=== PATIENT | female | born 1950 | race Two or more races ===

== ENCOUNTER → 2019-08-21 | Outpatient (REF) | payer MEDICARE, OTHER ==
[~2019-08-21] MED LIST: ACTOS30 PO; ACTOS45 PO; AMLO10TA; ASPI325T; CELE100C; DIOV320T; DIOVAN PO; DIOVAN160 PO; DIOVANHCT PO; GLEEVEC; GLUC1TOUCH TOPICAL; GLUCOT PO; GLUCULTRA TOP; HCTZ25 PO; HYDROD25 PO; LASI20TA; LOVE1INJ; NORVASC5 PO; OYST500T; REPA2TAB5; ROSI4TA; SIMV5TAB2; TEMOVATEOI TOPICAL; THERGRAN; TYLENOL #3; VICO5TAB; VIOXX25 PO; VIOXX50 PO; ZOCOR20 PO
[2019-08-21 12:15] LABS: BLOOD UREA NITROGEN 19 MG/DL (7-18); CARBON DIOXIDE LEVEL 28 MEQ/L (21-32); CHLORIDE LEVEL 109 MEQ/L (98-107); CHOLESTEROL LEVEL 141 MG/DL (<200); CHOLESTEROL RISK RATIO 3.615 (<5); CREATININE FOR GFR 0.59 MG/DL (0.55-1.30); GLOMERULAR FILTRATION RATE > 60.0 (>45); GLUCOSE, FASTING 179 MG/DL (70-100); HDL CHOLESTEROL 39 MG/DL (>40); LDL CHOLESTEROL 65 MG/DL (<100); NON-HDL-C 102 MG/DL; POTASSIUM SERUM 3.8 MEQ/L (3.5-5.1); SODIUM LEVEL 142 MEQ/L (136-145); TRIGLYCERIDES LEVEL 187 MG/DL (<150)
[2019-08-21 12:52] LABS: CREATININE, URINE 48.3 MG/DL; MAU/CREAT RATIO 977.2 MCG/MG (0.0-30.0)
[2019-08-21 13:43] LABS: HEMOGLOBIN A1c 7.9 %
== END ==
LOC: M SFHCCLAY 08:19
PROVIDERS: ATTEND Family Medicine
DX: E11.9 Type 2 diabetes mellitus without complications (principal); E78.5 Hyperlipidemia, unspecified; I11.9 Hypertensive heart disease without heart failure

== ENCOUNTER → 2019-09-09 | Outpatient (REF) | payer MEDICARE, OTHER ==
[2019-09-09 11:27] LABS: BLOOD UREA NITROGEN 19 MG/DL (7-18); CARBON DIOXIDE LEVEL 30 MEQ/L (21-32); CHLORIDE LEVEL 108 MEQ/L (98-107); CREATININE FOR GFR 0.67 MG/DL (0.55-1.30); GLOMERULAR FILTRATION RATE > 60.0 (>45); GLUCOSE, FASTING 132 MG/DL (70-100); POTASSIUM SERUM 3.6 MEQ/L (3.5-5.1); SODIUM LEVEL 145 MEQ/L (136-145)
== END ==
LOC: M SFHCCLAY 08:00
PROVIDERS: ATTEND Family Medicine
DX: I11.9 Hypertensive heart disease without heart failure (principal)

== ENCOUNTER → 2019-09-22 | Outpatient (REF) | payer MEDICARE, OTHER ==
[2019-09-22 11:49] LABS: BLOOD UREA NITROGEN 17 MG/DL (7-18); CALCIUM LEVEL 9.3 MG/DL (8.8-10.2); CARBON DIOXIDE LEVEL 32 MEQ/L (21-32); CHLORIDE LEVEL 108 MEQ/L (98-107); CREATININE FOR GFR 0.73 MG/DL (0.55-1.30); GLOMERULAR FILTRATION RATE > 60.0 (>45); GLUCOSE, FASTING 108 MG/DL (70-100); POTASSIUM SERUM 3.7 MEQ/L (3.5-5.1); SODIUM LEVEL 143 MEQ/L (136-145)
== END ==
LOC: M SFHCCLAY 08:05
PROVIDERS: ATTEND Family Medicine
DX: I11.9 Hypertensive heart disease without heart failure (principal)
CPT/HCPCS: 80048; G0463

== ENCOUNTER → 2019-12-07 | Outpatient (REF) | payer MEDICARE, OTHER ==
[2019-12-07 13:14] LABS: BLOOD UREA NITROGEN 16 MG/DL (7-18); CALCIUM LEVEL 8.5 MG/DL (8.8-10.2); CARBON DIOXIDE LEVEL 28 MEQ/L (21-32); CHLORIDE LEVEL 112 MEQ/L (98-107); CREATININE FOR GFR 0.68 MG/DL (0.55-1.30); GLOMERULAR FILTRATION RATE > 60.0 (>45); GLUCOSE, FASTING 160 MG/DL (70-100); POTASSIUM SERUM 3.6 MEQ/L (3.5-5.1); SODIUM LEVEL 146 MEQ/L (136-145)
[2019-12-07 14:00] LABS: HEMOGLOBIN A1c 7.9 %
== END ==
LOC: M LABDRAWC 11:24
PROVIDERS: ATTEND Family Medicine
DX: I11.9 Hypertensive heart disease without heart failure (principal); R60.0 Localized edema; E11.29 Type 2 diabetes mellitus with other diabetic kidney complication

== ENCOUNTER → 2020-02-04 | Outpatient (CLI) | payer MEDICARE, OTHER ==
--- NOTE | 2020-02-04 15:54 | REP ---
INDICATION: R92.8 ABN MAMMO OF LT BREAST,N63.20 LT BREAST MASS. COMPARISON: [facility] 07/[facility]/2018, 01/01/2020, and 01/05/2020. TECHNIQUE: Real-time sonographic evaluation of left breast performed. According to the patient's history an abnormality was seen on the recent mammogram in December 2019 between 8 and 10 o'clock.. FINDINGS: No cystic or solid nodule is seen in the left breast between 8 and 10 o'clock. At the 2 o'clock position 12 cm from the nipple there is a simple cyst measuring 5 x 7 x 5 mm. At 3 o'clock approximately 8 cm from the nipple there is an irregular nodular area of shadowing which is taller than wide and measures 6 x 11 x 13 mm. IMPRESSION: BIRADS/ACR category 4 suspicious. At the 3 o'clock position of the left breast approximately 8 cm from the nipple there is an irregular shadowing nodule which is taller than wide and measures 6 x 11 x 13 mm. Recommend ultrasound-guided biopsy. No sonographic abnormality between 8 and 10 o'clock left breast. Simple cyst left breast 2 o'clock 7 mm. RECOMMENDATION: Ultrasound-guided biopsy of the irregular nodule at 3 o'clock left breast is recommended. <Electronically signed by Sony Kiser > 02/04/20 [id number]
== END ==
LOC: M WHC 09:23
PROVIDERS: ATTEND Surgery
DX: N63.25 Unspecified lump in the left breast, overlapping quadrants (principal)

== ENCOUNTER → 2020-02-23 | Outpatient (CLI) | payer MEDICARE, OTHER ==
--- NOTE | 2020-02-23 11:21 | REP ---
INDICATION: R92.8 ABN MAMMO LT MEDIAL LESION,LT 3:00 LESION,POST BX. Marker clip placement views. Patient is status post stereotactic needle biopsy for a medial target in the left breast and ultrasound-guided needle biopsy with marker clip placement for a lateral target seen by sonography. COMPARISON: [facility] 01/01/[facility]. TECHNIQUE: Craniocaudal and mediolateral views of the left breast are obtained. FINDINGS: Craniocaudad and mediolateral views of the left breast demonstrate a needle biopsy marker clip in position at the site ofa the somewhat spiculated densityaa identified in the medial aspect of the left breast on 01/01/2020 prior mammography. A 2nd needle biopsy marker clip is noted in the superolateral quadrant of the left breast from ultrasound-guided needle biopsy procedure. This area corresponds to a area of mammographically visible soft tissue density on the 01/01/2020 study. IMPRESSION: Two needle biopsy marker clips are seen in the left breast, status post stereotactic and ultrasound-guided needle biopsy procedures 4 separate targets. Both clips appear in good position. <Electronically signed by Yonas Martinez > 02/23/20 [id number]
[2020-02-23 13:16] VITALS: BP 138/78
--- NOTE | 2020-02-23 16:06 | REP ---
INDICATION: R92.8 ABN MAMMO LT MEDIAL LESION. COMPARISON: None. TECHNIQUE: This procedure is performed by VALENTE Barriga, under the direct supervision of Dr. Martinez. The risks and benefits of the procedure were explained to the patient and informed consent was obtained both verbally and written. Directly prior to the start of the procedure, a formal timeout was done in the procedure room. The cranial caudal approach was utilized. The left breast mass was localized using mammographic guidance. The skin was prepped and draped in a sterile fashion. Six ml of buffered lidocaine was used as a local anesthetic. A 10 gauge suction assisted mammotome needle was inserted and 6 core biopsy specimens were obtained. A marker clip was placed at the biopsy site. FINDINGS: The patient tolerated the procedure well and there were no immediate complications. After the appropriate amount of monitored convalescence the patient was discharged from the department IMPRESSION: Left breast stereotactic biopsy with micro clip placement. <Electronically signed by Radha Griffin > 02/23/20 [id number] <Electronically signed by Yonas Martinez > 02/23/20 [id number]
--- NOTE | 2020-02-23 19:19 | REP ---
INDICATION: R92.8 ABN US LT 3:00 LESION. COMPARISON: Comparison ultrasound dated 02/04/2020 demonstrates an irregular nodular area of shadowing which is taller than wide and measuring 6 x 11 x 13 mm at the 3 o'clock position approximately 8 cm from the nipple. TECHNIQUE: The procedure was performed by VALENTE Barriga, under the direct supervision of Dr. Martinez. The risks and benefits of the procedure were explained to the patient and an informed consent was obtained both verbally and written. Directly prior to the start of the procedure a formal time-out was completed in the procedure room. FINDINGS: Using ultrasound guidance the left breast mass at the 3 o'clock position was localized. The skin was prepped and draped in a sterile fashion. Six mL of buffered lidocaine was used as a local anesthetic. Using ultrasound guidance a 14 gauge Bard Marquee coaxial needle biopsy system was inserted and advanced into the left 3 o'clock breast mass. Six core biopsy specimens were obtained and sent to pathology for further analysis. A marker clip was placed at the biopsy site. The patient tolerated the procedure well and there were no immediate complications. After the appropriate amount of monitored convalescence the patient was discharged from the department. IMPRESSION: 1. Ultrasound-guided left breast biopsy at the 3 o'clock position. <Electronically signed by Radha Griffin > 02/23/201658 <Electronically signed by Yonas Martinez > 02/23/20 [id number]
== END ==
LOC: M WHCPRO 08:22
PROVIDERS: ATTEND Surgery
DX: N60.12 Diffuse cystic mastopathy of left breast (principal)

== ENCOUNTER → 2020-07-15 | Outpatient (REF) | payer MEDICARE, OTHER ==
[2020-07-15 16:50] LABS: HEMOGLOBIN A1c 6.7 %
[2020-07-15 17:00] LABS: BLOOD UREA NITROGEN 12 MG/DL (7-18); CALCIUM LEVEL 9.1 MG/DL (8.8-10.2); CARBON DIOXIDE LEVEL 29 MEQ/L (21-32); CHLORIDE LEVEL 105 MEQ/L (98-107); CREATININE FOR GFR 0.64 MG/DL (0.55-1.30); GLOMERULAR FILTRATION RATE > 60.0 (>45); GLUCOSE, FASTING 90 MG/DL (70-100); POTASSIUM SERUM 3.4 MEQ/L (3.5-5.1); SODIUM LEVEL 141 MEQ/L (136-145)
== END ==
LOC: M SFHCCLAY 10:00
PROVIDERS: ATTEND Family Medicine
DX: E11.29 Type 2 diabetes mellitus with other diabetic kidney complication (principal); I11.9 Hypertensive heart disease without heart failure

== ENCOUNTER → 2020-09-02 | Outpatient (CLI) | payer MEDICARE, OTHER ==
--- NOTE | 2020-09-15 08:21 | REP ---
INDICATION: R92.8 ABN L MAMMO/ABN U/S/6 MO F/U; L BREAST U/S AT BX SITE. COMPARISON: Comparison is made with prior mammography from February 23, 2020 and January 01, 2020. On February 23, 2020 the patient underwent stereotactic needle biopsy and ultrasound-guided needle biopsy in the left breast with marker clip placement at both sites. Comparison left breast sonography February 04, 2020 and February 23, 2020. TECHNIQUE: Craniocaudal and mediolateral oblique views are augmented by a true mL view and 3D tomography. The patient was recalled at my request for targeted repeat left breast ultrasound to reassess the 2 previous biopsy sites by ultrasound as well. Mammography images are obtained on September 02, 2020 and sonography images are obtained on September 06, 2020. This mammogram was interpreted with the aid of an FDA-approved computer-aided detection system. FINDINGS: There are 2 needle biopsy marker clips again noted in the left breast unchanged from comparison study 01/01/2020. These are HydroMARK clips and there is a small soft tissue density surrounding each of the wire components as expected for this type of marker clip. Scattered fibroglandular elements are seen. No new mass is seen. No area of microcalcification or spiculation is appreciated. No worrisome skin changes seen. No suspicious mammographic abnormality. The Volpara volumetric breast density pattern is b. Targeted ultrasound: Right breast scanning is performed targeting the 2 previous biopsy sites. At 3 o'clock position a HydroMARK clip is seen adjacent to a hypoechoic area 9 cm from nipple. There is fluid surrounding the HydroMARK clip. The hypoechoic area measures 1.1 x 1.1 x 1.5 cm. It is unchanged in appearance or size from the February 04, 2020 study. At the stereotactic guided biopsy site at 10 o'clock position, 4 cm from nipple, only the HydroMARK clip and a tiny amount of associated fluid is visible. No suspicious abnormality is seen at this location. IMPRESSION: BIRADS/ACR category 2 benign left breast mammographic and sonographic findings. This patient's Tyrer-Cuzick lifetime breast cancer risk assessment score is 4.1%. RECOMMENDATION: Repeat screening mammography recommended 1 year (for women over 40). The patient letter being requested is M2. <Electronically signed by Yonas Martinez > 09/06/20 [id number]
== END ==
LOC: M WHC 07:53
PROVIDERS: ATTEND Surgery
DX: R92.8 Other abnormal and inconclusive findings on diagnostic imaging of breast (principal)
CPT/HCPCS: 76642; 77065; G0279

== ENCOUNTER → 2020-09-06 | Outpatient (CLI) | payer MEDICARE, OTHER ==
--- NOTE | 2020-09-07 09:04 | DEXAMM ---
INDICATION: Z78.0 MENOPAUSE. COMPARISON: No available priors.. TECHNIQUE: Bone density was measured using dual-energy x-ray absorptionmetry (DEXA). FINDINGS: AP SPINE L1-L4 BMD 1.225 g/cm2 Young Adult T-Score 0.2 Age Matched Z-Score 1.9. LT FEMUR, TOTAL BMD 0.984 g/cm2 Young Adult T-Score -0.2 Age Matched Z-Score 1.2. LT NECK BMD 0.902 g/cm2 Young Adult T-Score -1.0 Age Matched Z-Score 0.7. RT FEMUR, TOTAL BMD 1.044 g/cm2 Young Adult T-Score 0.3 Age Matched Z-Score 1.7. RT NECK BMD 0.970 g/cm2 Young Adult T-Score -0.5 Age Matched Z-Score 1.2. IMPRESSION: There is normal bone density of the spine. There is low bone density of the left hip. There is normal bone density of the right hip. FOLLOW-UP: Recommendation for the next bone density exam: 2 years. <Electronically signed by Yonas Martinez > 09/07/20 [id number]
== END ==
LOC: M WHC 13:41
PROVIDERS: ATTEND Family Medicine
DX: Z78.0 Asymptomatic menopausal state (principal)

== ENCOUNTER → 2020-09-06 | Outpatient (CLI) | payer MEDICARE, OTHER | LOC: M WHC 13:49 | PROVIDERS: ATTEND Surgery | DX: Z78.0 Asymptomatic menopausal state (principal); N63.25 Unspecified lump in the left breast, overlapping quadrants ==

== ENCOUNTER → 2021-08-11 | Outpatient (CLI) | payer MEDICARE, OTHER | LOC: M WUC 15:55 | PROVIDERS: ATTEND Student in an Organized Health Care Education/Training Program | DX: R93.6 Abnormal findings on diagnostic imaging of limbs (principal); M25.531 Pain in right wrist ==

== ENCOUNTER → 2022-01-02 | Outpatient (CLI) | payer MEDICARE, OTHER | LOC: M CLY 11:40 | PROVIDERS: ATTEND Nurse Practitioner Family | DX: M25.511 Pain in right shoulder (principal); M25.811 Other specified joint disorders, right shoulder ==

== ENCOUNTER → 2022-01-31 | Outpatient (CLI) | payer MEDICARE, OTHER | LOC: M SOG 10:06 | PROVIDERS: ATTEND Orthopaedic Surgery | DX: M25.511 Pain in right shoulder (principal) ==

== ENCOUNTER → 2022-02-16 | Outpatient (CLI) | payer MEDICARE, OTHER | LOC: M RAD 12:24 | PROVIDERS: ATTEND Orthopaedic Surgery | DX: M25.511 Pain in right shoulder (principal); M19.011 Primary osteoarthritis, right shoulder ==

== ENCOUNTER → 2022-06-22 | Outpatient (REF) | payer MEDICARE, OTHER ==
[2022-06-22 12:21] LABS: FREE T4 1.26 NG/DL (0.89-1.76); THYROID STIMULATING HORMONE 1.059 uIU/ML (0.55-4.78)
== END ==
LOC: M SFHCCLAY 08:14
PROVIDERS: ATTEND Nurse Practitioner Family
DX: E04.1 Nontoxic single thyroid nodule (principal)

== ENCOUNTER → 2022-12-21 | Outpatient (REF) | payer MEDICARE, OTHER ==
[2022-12-21 12:43] LABS: ALBUMIN 3.6 G/DL (3.2-5.2); ALKALINE PHOSPHATASE 60 U/L (46-116); ALT/SGPT 28 U/L (7.0-40); AST/SGOT 17 U/L (<34); BILIRUBIN,TOTAL 0.4 MG/DL (0.3-1.2); BLOOD UREA NITROGEN 8 MG/DL (9-23); CALCIUM LEVEL 8.9 MG/DL (8.3-10.6); CARBON DIOXIDE LEVEL 26 MMOL/L (20-31); CHLORIDE LEVEL 108 MMOL/L (98-107); CHOLESTEROL LEVEL 122 MG/DL (<200); CHOLESTEROL RISK RATIO 2.83 (<5); GLOMERULAR FILTRATION RATE > 60.0 (>39); GLUCOSE, FASTING 80 MG/DL (74-106); HDL CHOLESTEROL 43.1 MG/DL (>40); LDL CHOLESTEROL 50.9 MG/DL (<100); NON-HDL-C 78.9 MG/DL; POTASSIUM SERUM 3.7 MMOL/L (3.5-5.1); SODIUM LEVEL 144 MMOL/L (136-145); TOTAL PROTEIN 6.3 G/DL (5.7-8.2); TRIGLYCERIDES LEVEL 140 MG/DL (<150)
[2022-12-21 12:44] LABS: FREE T4 1.13 NG/DL (0.89-1.76); THYROID STIMULATING HORMONE 0.518 uIU/ML (0.55-4.78)
[2022-12-21 12:46] LABS: BASO # 0.1 10^3/uL (0.0-0.2); BASO % 0.7 % (0.0-1.0); EOS # 0.2 10^3/uL (0.0-0.5); EOS % 2.6 % (0.0-3.0); HEMATOCRIT 42.1 % (36.0-47.0); LYMPH # 2.6 10^3/uL (1.5-5.0); LYMPH % 35.9 % (24.0-44.0); MEAN CORPUSCULAR HEMOGLOBIN 30.8 pg (27.0-33.0); MEAN CORPUSCULAR HGB CONC 33.3 g/dl (32.0-36.5); MEAN CORPUSCULAR VOLUME 92.7 fl (80.0-96.0); MONO # 0.5 10^3/uL (0.0-0.8); MONO % 7.3 % (2.0-8.0); NEUTROPHILS # 3.9 10^3/uL (1.5-8.5); NEUTROPHILS % 53.2 % (36.0-66.0); PLATELET COUNT, AUTOMATED 283 10^3/uL (150-450); RED BLOOD COUNT 4.54 10^6/uL (4.00-5.40); WHITE BLOOD COUNT 7.2 10^3/uL (4.0-10.0)
[2022-12-21 12:57] LABS: HEMOGLOBIN A1c 7.5 % (4.0-6.0)
== END ==
LOC: M SFHCCLAY 08:17
PROVIDERS: ATTEND Nurse Practitioner Family
DX: E11.29 Type 2 diabetes mellitus with other diabetic kidney complication (principal); E78.5 Hyperlipidemia, unspecified; C92.11 Chronic myeloid leukemia, BCR/ABL-positive, in remission; I10 Essential (primary) hypertension; E04.1 Nontoxic single thyroid nodule

== ENCOUNTER → 2023-01-04 | Outpatient (CLI) | payer MEDICARE, OTHER | LOC: M RAD 10:25 | PROVIDERS: ATTEND Nurse Practitioner Family | DX: E04.1 Nontoxic single thyroid nodule (principal) ==

== ENCOUNTER → 2023-02-28 | Outpatient (REF) | payer MEDICARE, OTHER ==
[2023-02-28 18:12] LABS: ALBUMIN 3.8 G/DL (3.2-5.2); ALKALINE PHOSPHATASE 64 U/L (46-116); ALT/SGPT 31 U/L (7.0-40); AST/SGOT 20 U/L (<34); BILIRUBIN,TOTAL 0.4 MG/DL (0.3-1.2); BLOOD UREA NITROGEN 19 MG/DL (9-23); CALCIUM LEVEL 9.3 MG/DL (8.3-10.6); CARBON DIOXIDE LEVEL 28 MMOL/L (20-31); CHLORIDE LEVEL 106 MMOL/L (98-107); CREATININE FOR GFR 0.71 MG/DL (0.55-1.30); GLOMERULAR FILTRATION RATE > 60.0 (>39); GLUCOSE, FASTING 110 MG/DL (74-106); POTASSIUM SERUM 3.9 MMOL/L (3.5-5.1); SODIUM LEVEL 140 MMOL/L (136-145); TOTAL PROTEIN 6.6 G/DL (5.7-8.2)
[2023-02-28 18:14] LABS: FREE T4 1.23 NG/DL (0.89-1.76); THYROID STIMULATING HORMONE 0.386 uIU/ML (0.55-4.78)
== END ==
LOC: M SFHCCLAY 09:44
PROVIDERS: ATTEND Nurse Practitioner Family
DX: E11.29 Type 2 diabetes mellitus with other diabetic kidney complication (principal); E04.1 Nontoxic single thyroid nodule; E78.5 Hyperlipidemia, unspecified; C92.11 Chronic myeloid leukemia, BCR/ABL-positive, in remission; I10 Essential (primary) hypertension; E87.6 Hypokalemia

== ENCOUNTER → 2023-03-19 | Outpatient (REF) | payer MEDICARE, OTHER | LOC: M SFHCCLAY 14:43 | PROVIDERS: ATTEND Nurse Practitioner Family | DX: N89.8 Other specified noninflammatory disorders of vagina (principal) ==

== ENCOUNTER → 2023-08-08 | Outpatient (REF) | payer MEDICARE, OTHER ==
[2023-08-08 18:31] LABS: ALBUMIN 3.9 G/DL (3.2-5.2); ALKALINE PHOSPHATASE 80 U/L (46-116); ALT/SGPT 29 U/L (7.0-40); AST/SGOT 17 U/L (<34); BILIRUBIN,TOTAL 0.4 MG/DL (0.3-1.2); BLOOD UREA NITROGEN 20 MG/DL (9-23); CALCIUM LEVEL 9.6 MG/DL (8.3-10.6); CARBON DIOXIDE LEVEL 23 MMOL/L (20-31); CHLORIDE LEVEL 107 MMOL/L (98-107); CHOLESTEROL LEVEL 155 MG/DL (<200); CHOLESTEROL RISK RATIO 4.28 (<5); CREATININE FOR GFR 0.69 MG/DL (0.55-1.30); FREE T4 1.16 NG/DL (0.89-1.76); GLOMERULAR FILTRATION RATE > 60.0 (>39); GLUCOSE, FASTING 192 MG/DL (74-106); HDL CHOLESTEROL 36.2 MG/DL (>40); LDL CHOLESTEROL 66.6 MG/DL (<100); NON-HDL-C 118.8 MG/DL; SODIUM LEVEL 141 MMOL/L (136-145); THYROID STIMULATING HORMONE 0.438 uIU/ML (0.55-4.78); TOTAL PROTEIN 6.6 G/DL (5.7-8.2); TRIGLYCERIDES LEVEL 261 MG/DL (<150)
[2023-08-08 18:38] LABS: HEMOGLOBIN A1c 7.7 % (4.0-6.0)
== END ==
LOC: M SFHCCLAY 09:50
PROVIDERS: ATTEND Nurse Practitioner Family
DX: Z00.00 Encounter for general adult medical examination without abnormal findings (principal); E04.1 Nontoxic single thyroid nodule; E11.29 Type 2 diabetes mellitus with other diabetic kidney complication; E78.5 Hyperlipidemia, unspecified; C92.11 Chronic myeloid leukemia, BCR/ABL-positive, in remission; I10 Essential (primary) hypertension; E87.6 Hypokalemia

== ENCOUNTER → 2024-08-14 | Outpatient (REF) | payer MEDICARE, OTHER ==
[~2024-08-14] MED LIST changes: +BASA100I; +DULA3PEN; +IMAT400T PO; +INVO100T; +METO50TA7; +POTA-151 PO; +POTA-298; +TRUL0.5I
[2024-08-14 13:00] LABS: ALBUMIN 3.8 G/DL (3.2-5.2); ALKALINE PHOSPHATASE 64 U/L (35-104); ALT/SGPT 24 U/L (7.0-40); AST/SGOT 17 U/L (<34); BASO % 0.6 % (0.0-1.0); BILIRUBIN,TOTAL 0.5 MG/DL (0.3-1.2); BLOOD UREA NITROGEN 16 MG/DL (9-23); CARBON DIOXIDE LEVEL 26 MMOL/L (20-31); CHLORIDE LEVEL 106 MMOL/L (98-107); CHOLESTEROL LEVEL 146 MG/DL (<200); CHOLESTEROL RISK RATIO 3.56 (<5); CREATININE FOR GFR 0.61 MG/DL (0.55-1.30); EOS # 0.1 10^3/uL (0.0-0.5); EOS % 1.7 % (0.0-3.0); GLOMERULAR FILTRATION RATE > 90.0 (>39); GLUCOSE, FASTING 184 MG/DL (74-106); HDL CHOLESTEROL 40.9 MG/DL (>40); HEMATOCRIT 41.8 % (36.0-47.0); HEMOGLOBIN 13.8 g/dl (12.0-15.5); LDL CHOLESTEROL 63.5 MG/DL (<100); LYMPH # 1.5 10^3/uL (1.5-5.0); LYMPH % 21.6 % (24.0-44.0); MEAN CORPUSCULAR HEMOGLOBIN 30.3 pg (27.0-33.0); MEAN CORPUSCULAR VOLUME 91.7 fl (80.0-96.0); MONO # 0.6 10^3/uL (0.0-0.8); MONO % 7.8 % (2.0-8.0); NEUTROPHILS # 4.8 10^3/uL (1.5-8.5); NEUTROPHILS % 67.9 % (36.0-66.0); NON-HDL-C 105.1 MG/DL; PLATELET COUNT, AUTOMATED 285 10^3/uL (150-450); POTASSIUM SERUM 3.9 MMOL/L (3.5-5.1); RED BLOOD COUNT 4.56 10^6/uL (4.00-5.40); SODIUM LEVEL 142 MMOL/L (136-145); TOTAL PROTEIN 6.4 G/DL (5.7-8.2); TRIGLYCERIDES LEVEL 208 MG/DL (<150); WHITE BLOOD COUNT 7.1 10^3/uL (4.0-10.0)
[2024-08-14 13:02] LABS: THYROID STIMULATING HORMONE 0.524 uIU/ML (0.55-4.78)
[2024-08-14 13:03] LABS: FREE T4 1.33 NG/DL (0.89-1.76)
[2024-08-14 13:37] LABS: HEMOGLOBIN A1c 8.6 % (4.0-6.0)
== END ==
LOC: M SFHCCLAY 07:32
PROVIDERS: ATTEND Nurse Practitioner Family
DX: E11.29 Type 2 diabetes mellitus with other diabetic kidney complication (principal); N89.8 Other specified noninflammatory disorders of vagina; E04.1 Nontoxic single thyroid nodule; E78.5 Hyperlipidemia, unspecified; C92.11 Chronic myeloid leukemia, BCR/ABL-positive, in remission; I10 Essential (primary) hypertension; E87.6 Hypokalemia

== ENCOUNTER → 2024-12-23 | Outpatient (CLI) | payer MEDICARE, OTHER | LOC: M RAD 12:02 | PROVIDERS: ATTEND Nurse Practitioner Family | DX: E04.2 Nontoxic multinodular goiter (principal) ==

== ENCOUNTER → 2025-02-01 | Outpatient (REF) | payer MEDICARE, OTHER ==
[2025-02-01 14:14] LABS: CALCIUM LEVEL 9.0 MG/DL (8.3-10.6); CARBON DIOXIDE LEVEL 30.0 MMOL/L (20-31); CHLORIDE LEVEL 106.0 MMOL/L (98-107); CREATININE FOR GFR 0.71 MG/DL (0.55-1.30); GLOMERULAR FILTRATION RATE 89.7 (>39); POTASSIUM SERUM 3.7 MMOL/L (3.5-5.1); SODIUM LEVEL 146.0 MMOL/L (136-145)
[2025-02-01 14:19] LABS: ESTIMATED AVERAGE GLUCOSE 157.0 MG/DL (60-110)
== END ==
LOC: M SFHCCLAY 08:29
PROVIDERS: ATTEND Nurse Practitioner Family
DX: Z00.00 Encounter for general adult medical examination without abnormal findings (principal); N89.8 Other specified noninflammatory disorders of vagina; E11.29 Type 2 diabetes mellitus with other diabetic kidney complication; E04.1 Nontoxic single thyroid nodule; E78.5 Hyperlipidemia, unspecified; C92.11 Chronic myeloid leukemia, BCR/ABL-positive, in remission; I10 Essential (primary) hypertension; E87.6 Hypokalemia

== ENCOUNTER → 2025-02-03 | Outpatient (CLI) | payer MEDICARE, OTHER | LOC: M CLY 14:59 | PROVIDERS: ATTEND Nurse Practitioner Family | DX: S49.92XA Unspecified injury of left shoulder and upper arm, initial encounter (principal); M79.602 Pain in left arm; X58.XXXA Exposure to other specified factors, initial encounter; Y92.9 Unspecified place or not applicable; Y93.9 Activity, unspecified; Y99.9 Unspecified external cause status; E11.29 Type 2 diabetes mellitus with other diabetic kidney complication; E04.1 Nontoxic single thyroid nodule; E78.5 Hyperlipidemia, unspecified; C92.11 Chronic myeloid leukemia, BCR/ABL-positive, in remission; I10 Essential (primary) hypertension; E87.6 Hypokalemia; R60.0 Localized edema ==

== ENCOUNTER → 2025-02-03 | Outpatient (REF) | payer MEDICARE, OTHER ==
[2025-02-03 18:38] LABS: ESTIMATED AVERAGE GLUCOSE 151.0 MG/DL (60-110)
[2025-02-03 18:48] LABS: ALT/SGPT 20.0 U/L (7.0-40); AST/SGOT 20.0 U/L (<34); CALCIUM LEVEL 9.5 MG/DL (8.3-10.6); CARBON DIOXIDE LEVEL 27.0 MMOL/L (20-31); CHLORIDE LEVEL 103.0 MMOL/L (98-107); CHOLESTEROL LEVEL 154.0 MG/DL (<200); CHOLESTEROL RISK RATIO 2.86 (<5); CREATININE FOR GFR 0.74 MG/DL (0.55-1.30); GLOMERULAR FILTRATION RATE 85.4 (>39); LDL CHOLESTEROL 62.6 MG/DL (<100); NON-HDL-C 100.2 MG/DL; POTASSIUM SERUM 4.0 MMOL/L (3.5-5.1); SODIUM LEVEL 143.0 MMOL/L (136-145); TRIGLYCERIDES LEVEL 188.0 MG/DL (<150)
[2025-02-03 18:50] LABS: FREE T4 1.36 NG/DL (0.89-1.76)
== END ==
LOC: M SFHCCLAY 14:16
PROVIDERS: ATTEND Nurse Practitioner Family
DX: E11.29 Type 2 diabetes mellitus with other diabetic kidney complication (principal); E04.1 Nontoxic single thyroid nodule; E78.5 Hyperlipidemia, unspecified; C92.11 Chronic myeloid leukemia, BCR/ABL-positive, in remission; I10 Essential (primary) hypertension; E87.6 Hypokalemia; R60.0 Localized edema

== ENCOUNTER → 2025-02-09 | Outpatient (CLI) | payer MEDICARE, OTHER | LOC: M PLAIMG 09:26 | PROVIDERS: ATTEND Nurse Practitioner Family | DX: R93.89 Abnormal findings on diagnostic imaging of other specified body structures (principal); M75.112 Incomplete rotator cuff tear or rupture of left shoulder, not specified as traumatic; M75.22 Bicipital tendinitis, left shoulder; M25.462 Effusion, left knee; M19.042 Primary osteoarthritis, left hand; M75.52 Bursitis of left shoulder ==